=== PATIENT | male | born 1955 | race African-American/Black ===

== ENCOUNTER → 2017-08-18 15:01 | Outpatient (CLI) | payer BC | END | disposition home or self-care (01) | LOC: D.CT 15:01 | DX: R10.32 Left lower quadrant pain (principal) ==

== ENCOUNTER → 2017-08-27 13:30 | Outpatient (CLI) | payer BC | END | disposition home or self-care (01) | LOC: D.US 13:30 | DX: R19.00 Intra-abdominal and pelvic swelling, mass and lump, unspecified site (principal) ==